=== PATIENT | female | born 1945 | race Caucasian/White ===

== ENCOUNTER 2024-02-28 05:14 | Observation (INO) ==
--- NOTE | 2024-02-14 12:49 | PAT Medication Instructions ---
Medication Instructions Date of Service February 14, 2024 Home Medications amlodipine 5 mg tablet 5 mg PO HS calcium 600 mg capsule 1,200 mg PO DAILY ibandronate 150 mg tablet 150 mg PO MONTHLY losartan 25 mg tablet 12.5 mg PO QAM meloxicam 15 mg tablet 15 mg PO DAILY multivitamin 1 tab PO DAILY omega 9-pux-cbd-fish oil 1,000 mg (120 mg-180 mg) capsule (Fish Oil) 1 cap PO DAILY simvastatin 10 mg tablet 10 mg PO HS ASK your surgeon for instructions meloxicam 15 mg tablet 15 mg PO DAILY STOP taking 2 weeks before surgery (or as soon as possible if surgery is within 2 weeks) omega 7-hzc-udl-fish oil 1,000 mg (120 mg-180 mg) capsule (Fish Oil) 1 cap PO DAILY DO NOT take the morning of surgery calcium 600 mg capsule 1,200 mg PO DAILY ibandronate 150 mg tablet 150 mg PO MONTHLY losartan 25 mg tablet 12.5 mg PO QAM multivitamin 1 tab PO DAILY Take evening before surgery amlodipine 5 mg tablet 5 mg PO HS simvastatin 10 mg tablet 10 mg PO HS Other Notes NOTHING TO EAT OR DRINK AFTER MIDNIGHT. If you have any questions please call us at [phone] or [phone] or [phone] or [phone]
--- NOTE | 2024-02-14 13:29 | Anesthesiology Consultation ---
Date of Service February 14, 2024 Assessment & Plan (1) Encounter for pre-operative examination: - awaiting surgeon ordered medical clearance-Dr. Caba, optimization form to be faxed to PCP. - Case discussed in detail with Dr. Sweeney regarding right bruit vs radiation of systolic murmur noted on exam. He advised sending an optimization note to PCP with upcoming surgeon ordered clearance. Patient made aware. - Outpatient joint assessment: Patient is currently scheduled for inpatient pathway. If re-evaluated and patient/surgeon requests outpatient pathway, patient is not recommended candidate for outpatient joint program from anesthesia standpoint. Chart Review Chart Review: Pending: Refer to Additional Notes / Consult section and Patient seen in Pre Admission Testing Teaching & Discussion Pre-Anesthesia Teaching/Discussion Notes: Instructed NPO after midnight before surgery, except medications with 15 cc of water. Medication instructions provided according to the PAT guidelines. History Surgery Operation Date: 02/28/24 07:00 Proposed Procedures p Right Total Hip Arthroplasty - Haim Meredith MD Height/Weight Height: 5 ft Weight: 60.3 kg Allergies Allergy/AdvReac Type Severity Reaction Status Date / Time No Known Allergies Allergy Verified 02/14/24 07:54 Medications Home Medications Medication Instructions Recorded Confirmed Last Taken amlodipine 5 mg tablet 5 mg PO HS 02/14/24 02/14/24 Unknown calcium 600 mg capsule 1,200 mg PO DAILY 02/14/24 02/14/24 Unknown ibandronate 150 mg tablet 150 mg PO MONTHLY 02/14/24 02/14/24 Unknown losartan 25 mg tablet 12.5 mg PO QAM 02/14/24 02/14/24 Unknown meloxicam 15 mg tablet 15 mg PO DAILY 02/14/24 02/14/24 Unknown multivitamin 1 tab PO DAILY 02/14/24 02/14/24 Unknown omega 8-akf-acj-fish oil 1,000 mg 1 cap PO DAILY 02/14/24 02/14/24 Unknown (120 mg-180 mg) capsule (Fish Oil) simvastatin 10 mg tablet 10 mg PO HS 02/14/24 02/14/24 Unknown Past Medical History Medical History (Updated 02/14/24 @ 13:33 by Kirti Merida PA-C) Aortic stenosis mild 12/04/2022 echo Hyperlipidemia Hypertension controlled, stable per pt Osteoarthritis Patient denies h/o stroke, seizures, heart attack, heart failure, DM, blood clots/DVTs or blood transfusions. Exercise / Class Metabolic Activity II 4-5 Yardwork/Stairs/Walk up hill (denies chest discomfort or shortness of breath with one flight of stairs) Past Family History Family History (Updated 02/14/24 @ 08:06 by Ksenia Kapoor RN) Other No family history of adverse response to anesthesia Past Surgical History Surgical History (Updated 02/14/24 @ 13:34 by Kirti Merida PA-C) History of anesthesia reaction Foggy x 5 days after last BELLA 2020 History of carpal tunnel release left History of cataract surgery right/left History of colonoscopy History of esophagogastroduodenoscopy (EGD) History of hysterectomy History of total hip arthroplasty left Past Anesthesia History No Family Hx of Anesthesia Complications and Other (see above) History of PONV No Hx of PONV and No Hx of Motion Sickness Social History Smoking Status: Former smoker Do You Dip or Chew Tobacco: No Smoking End Date: Hx Alcohol Use: Yes Alcohol type: wine alcohol intake frequency: a few times a month substance use type: does not use Review of Systems Snoring, denies witnessed apneas. Patient denies chest pain, shortness of breath, dyspnea on exertion, reflux, fever, chills, cough, wheezing, or palpitations. Physical Exam Vital Signs Vitals BP 121/69 P 76 TEMP 98.0 SP02 97% on RA RESP 18 Physical Patient resting comfortably in chair in no acute distress, alert and oriented, responding appropriately throughout visit Full cervical extension range of motion without pain TMD 3.5 finger breadths Mallampati Score 2 Dentition: several implants and a cap; denies chipped or loose teeth, crowns or bridges Lungs: normal respiratory effort. Good air movement, clear throughout to auscultation, no adventitious breath sounds Cardiac: regular rate and rhythm, 2/6 systolic murmur, no gallops or rubs Carotid arteries: bruit right carotid, no bruit left carotid Lab Results Anesthesia Preop Results Results Anesthesia Widget: WBC 7.61 K/ul (4.8-10.8) 02/14/24 Hgb 11.8 g/dl (12.0-16.0) L 02/14/24 Hct 35.2 % (37.0-47.0) L 02/14/24 Plt 296 K/uL (130-400) 02/14/24 Na 133 mmol/L (136-145) L 02/14/24 K 4.3 mmol/L (3.5-5.1) 02/14/24 Cl 97 mmol/L (98-107) L 02/14/24 CO2 31 mmol/L (21-32) 02/14/24 BUN 20 mg/dl (6-23) 02/14/24 Creat 0.86 mg/dl (0.6-1.2) 02/14/24 Glucose Level 95 mg/dl (70-99(Fasting)) 02/14/24 PT 10.4 Seconds (9.0-12.0) 02/14/24 PTT 24 Seconds (21-31) 02/14/24 INR 1.0 (0.9-1.1) 02/14/24 Urine Color Yellow 02/14/24 Urine Appearance Clear (Clear) 02/14/24 Urine pH 7.0 (4.5-7.5) 02/14/24 Urine Specific [place] 1.013 (1.000-1.030) 02/14/24 Urine Protein Negative (Negative) 02/14/24 Urine Glucose (UA) Negative (Negative) 02/14/24 Urine Ketones Negative (Negative) 02/14/24 Urine Blood Negative (Negative) 02/14/24 Urine Nitrite Negative (Negative) 02/14/24 Urine Bilirubin Negative (Negative) 02/14/24 Urine Urobilinogen Negative (Negative) 02/14/24 Urine Leukocyte Esterase Trace (Negative) H 02/14/24 Urine WBC (Auto) 0-5 /hpf (0-5) 02/14/24 Urine RBC (Auto) 0-2 /hpf (0-2) 02/14/24 Urine Hyaline Casts (Auto) 0-2 /lpf (0-2) 02/14/24 Urine Epithelial Cells (Auto) 0-2 /hpf (0-2) 02/14/24 Urine Bacteria (Auto) None Seen (None Seen) 02/14/24 Blood Type B Positive 02/14/24 Antibody Screen NEGATIVE 02/14/24 Testing Electrocardiogram Date: 02/14/24 NSR, rate 72 bpm Echocardiogram Date: 12/04/22 EF 55-60% Normal LV wall motion Mild mitral regurgitation Mild aortic valve stenosis (GRANT 1.2 cm2, peak gradient 30 mmHg) Mild tricuspid regurgitation
[2024-02-28] MEDS: traMADol HCL 50 MG TABLET PO SCH (05:40)
[2024-02-28] MEDS: ACETAMINOPHEN 500 MG TAB PO SCH ×2 (05:40→13:23)
[2024-02-28] MEDS: CeleBREX 200 MG CAP PO SCH (05:40)
[2024-02-28] MEDS: Scopolamine 1 MG TDSY TD SCH (05:41)
[2024-02-28] MEDS: FAMOTIDINE 20 MG TAB PO SCH (05:41)
[2024-02-28] MEDS: LR 500ML BOLUS, THEN 15ML/HR IV SCH (05:47)
[2024-02-28] MEDS: LR 60ML/HR IV SCH (05:52)
[2024-02-28] MEDS: dexAMETHasone**PF** 10 MG/ML VIAL IV SCH (05:52)
[2024-02-28] MEDS ORDERED: BUPIVACAINE 0.5 % 5 MG/1 ML PF 10ML VIAL ONE (06:22)
[2024-02-28] MEDS ORDERED: ONDANSETRON INJ 2 MG/ML 2 ML VIAL IV PRN ×2 (06:37→09:29)
[2024-02-28] MEDS ORDERED: fentaNYL citrate PF 100 MCG/2 ML VIAL IV PRN (06:37)
[2024-02-28] MEDS ORDERED: ATROPINE SULFATE 0.1 MG/ML 10ML SYR IV PRN (06:37)
[2024-02-28] MEDS ORDERED: ePHEDrine sulfate 50 MG/ML AMP IV PRN (06:37)
--- NOTE | 2024-02-28 06:40 | History & Physical Bridge Note ---
Date of Service February 28, 2024 History & Physical Bridge Note I have examined the patient, reviewed the History & Physical and in the interval since the performance of the History & Physical I have noted the following changes of clinical significance: no changes noted
[2024-02-28] MEDS ORDERED: fentaNYL citrate PF 100 MCG/2 ML VIAL ONE (06:45)
[2024-02-28] MEDS ORDERED: MIDAZOLAM HCL 1 MG/ML 2ML VIAL ONE (06:45)
[2024-02-28] MEDS ORDERED: DexMEDEtomidine HCL IV 100 MCG/ML VIAL IV ONE (06:46)
[2024-02-28] MEDS: TRANEXAMIC ACID 1,000 MG **IV Pre-op IV SCH (06:48)
[2024-02-28] MEDS: ceFAZolin 2000MG 2,000 MG/15 ML SYR IV SCH ×2 (06:57→14:50)
[2024-02-28] MEDS ORDERED: PHENYLEPHRINE 100MCG/ML 10ML SYR IV ONE ×2 (07:19→07:47)
[2024-02-28] MEDS ORDERED: ONDANSETRON INJ 2 MG/ML 2 ML VIAL ONE (07:19)
[2024-02-28] MEDS ORDERED: PROPOFOL IV EMULSION 10 MG/ML 20 ML VIAL IV ONE (07:19)
[2024-02-28] MEDS: ROPIV 0.5% 246mg, Ketorolac 30mg, EPINEPHrine 0.5mg in NSS INFIL SCH (07:29)
[2024-02-28] MEDS: ORTHO JOINT ANESTHETIC ONE (07:29)
[2024-02-28] MEDS ORDERED: LIDOCAINE 2% 2 ML VIAL/AMP(20MG/ML) INFIL ONE (07:47)
[2024-02-28] MEDS ORDERED: PHENYLEPHRINE HCL 10 MG/ML VIAL ONE ×2 (08:30)
[2024-02-28] MEDS: TRANEXAMIC ACID 1,000 MG **IV Intra-op IV SCH (08:47)
--- NOTE | 2024-02-28 09:15 | Operative Report ---
Post Operative Report Pre & Post Diagnosis Operation Date: 02/28/24 07:00 Pre-Op Diagnosis: Right Hip Degenerative Joint Disease Post-Op Diagnosis: Right Hip Degenerative Joint Disease I identified the patient and participated in the time-out.: Yes Procedure Operation Date: 02/28/24 07:00 Actual Procedures p Right Total Hip Arthroplasty, Cemented(Right) - Haim Meredith MD Surgeon Haim Meredith MD Optical Mechanic Apprentice Carrington Thompson DO and MACKENZIE Mendoza PA-C. Estimated Blood Loss 100 Findings Consistent with Post-Op Diagnosis Specimens Right femoral head Anesthesia Type Spinal MAC Complications none Disposition Disposition: Recovery Room Indications 78-year-old female with right hip pain that is severely worsened in the last 1 year. 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 She has previously undergone a left total hip arthroplasty by another surgeon with a good result. She desires to have a hip replacement done on the right side. I do long discussion with her about the risks and benefits of surgery, alternatives to surgery, and expected outcomes. After reviewing all these she elected to proceed with surgery. All questions were answered. Informed consent was signed. Description of Procedure Patient was identified in the preoperative holding area where the surgical site, right hip, was marked. A spinal anesthetic was placed, then the patient was brought back to the main operating room, placed in the operating table and moved into the lateral decubitus position. Axillary roll was placed. All bony prom inences were padded. Perioperative antibiotics and tranexamic acid 1 gram IV were administered. The operative extremity was prepped and draped in the normal sterile fashion. Prior to incision a multidisciplinary timeout was called. All in the room were in agreement. We began by making an incision for a posterior approach to the hip. We dissected down through subcutaneous tissues to the level of the fascia. The fascia was incised in line with the incision. Charnley bow was placed. Fatty tissue was reflected posteriorly off the back of the greater trochanter to expose the piriformis and short external rotators of the hip. Quadratus femoris was taken off the femur subperiosteally. The piriformis and short external rotators were dissected off the posterior aspect of the hip. A box cut was made in the capsule. Inferior hip capsule was released off the femur. The femoral head was dislocated. The femoral neck cut was made at our preoperative template. The acetabulum was then exposed. The labrum was sharply excised. Contents of the cotyloid fossa were removed with electrocautery. We then began reaming at a size 8 mm less than our preoperative template. We reamed up by 1 [address] the way up to a size 52 mm cup. This gave us good bleeding cancellus bone circumferentially. The acetabulum was then irrigated out and dried. The real [place] Gription cup was then impacted down into position with 45 degrees of lateral opening and 25 degrees of anteversion. Two cancellous bone screws were placed up into the ilium. Excellent fixation was obtained. A trial liner for a 36 mm femoral head was then placed. Next we turned our attention to the femur. The lateral neck was removed with a box osteotome. Intramedullary guide was used to establish the intramedullary canal. We then broached all the way up to a size 4 Actis stem. Patient's cancellous bone was fairly soft and we were not getting good rotational stability with this down. Therefore I elected to switch to a cemented Reeves stem. I broached up to a size 4 cemented Reeves stem. We began trialing with a standard offset neck and a -2 head. Hip was reduced. Leg lengths were symmetric. The hip was stable in extension and external rotation, and stable in the sleeper position. At 90 degrees of hip flexion the hip could be internally rotated 70 degrees before levering out of the cup. I was very happy with the stability exam. Therefore the hip was dislocated and the femoral trial was removed. The acetabulum was re-exposed, and the trial liner was removed. Dickinson hole eliminator screw was placed. An Altrx polyethylene liner for a 36 mm femoral head was then impacted into the shell. The locking mechanism was checked to ensure that it had engaged which it had. The femur was re-exposed. The femoral canal was irrigated and dried. Cement restrictor was placed distally. We had a little difficulty getting this down to our desired depth as the cortical bone narrowed significantly distally. Cement was mixed on the back table. Once the cement was ready we injected this into the femoral canal, then pressurized the cement using my thumbs. The cemented femoral stem was then inserted into the femur and tapped down into position. Calcar sat about 1 mm above the femoral neck cut. Likely the tip of the stem was contacting the cement restrictor distally. Femoral implant was held in position until the cement completely cured at approximately 20 degrees of anteversion. Next, the -2 metal femoral head was opened up and gently impacted down onto the trunnion. The hip was atraumatically reduced. Another 1 gram of IV tranexamic acid was started prior to closure. The wound was irrigated out with sterile Betadine solution. The periarticular injection cocktail was then placed. The short external rotators, piriformis, and posterior capsule were repaired through drill holes in the greater trochanter using #2 Vicryl. The fascia was run with a looped #1 PDS. The subcutaneous layer was closed with #1 PDS. The dermal layer was closed with 2-0 Vicryl. Zip line was used for the skin followed by a Silverlon dressing. A compressive dressing was then placed. The patient was then rolled supine. Leg lengths were rechecked and were symmetric. An abduction pillow was placed. Sedation was lifted and the patient was transferred to the recovery room in stable condition. Summary of implants: Depuy [place] Gription Acetabular Shell Sector Cup, 52 mm outer diameter Two [place] Cancellous bone screws, 6.5 x 30 and 6.5 x 25 mm Dickinson hole eliminator [place] Altrx Polyethylene Acetabular Liner, Neutral, with a 36 mm inner diameter DePuy cemented collared femoral stem, 12/14 taper, size 4 standard offset 36 mm metal femoral head with -2 offset Postoperative course: Patient will be admitted overnight from the recovery room. Patient will be weightbearing as tolerated with posterior hip precautions. Aspirin for DVT prophylaxis I attest to the content of the Intraoperative Record and any orders documented therein. Any exceptions are noted below.
[2024-02-28] MEDS ORDERED: NALOXONE HCL 0.4 MG/1 ML VIAL/CARP IV PRN (09:29)
[2024-02-28] MEDS ORDERED: MAGNESIUM HYDROXIDE SUSP 30 ML UDC PO PRN (09:29)
[2024-02-28] MEDS ORDERED: HYDROmorphone INJ 0.5 MG/0.5 ML SYR IV PRN (09:29)
[2024-02-28] MEDS ORDERED: diphenhydrAMINE 50 MG/ML VIAL IV PRN (09:29)
[2024-02-28] MEDS ORDERED: bisacodyL 10 MG SUPP PR PRN (09:29)
[2024-02-28] MEDS ORDERED: ALUMINUM/MAGNESIUM SUSP 30 ML UDC PO PRN (09:29)
[2024-02-28] MEDS ORDERED: METOCLOPRAMIDE HCL INJ 5 MG/ML 2 ML VIAL IV PRN (09:29)
--- NOTE | 2024-02-28 09:29 | Operative Report ---
Post Operative Report Pre & Post Diagnosis Operation Date: 02/28/24 07:00 Pre-Op Diagnosis: Right Hip Degenerative Joint Disease Post-Op Diagnosis: Right Hip Degenerative Joint Disease I identified the patient and participated in the time-out.: Yes Procedure Operation Date: 02/28/24 07:00 Actual Procedures p Right Total Hip Arthroplasty, Cemented(Right) - Hami Meredith MD Surgeon Haim Meredith MD Chemical Equipment Sales Engineer Carrington Thompson DO and MACKENZIE Mendoza PA-C. Estimated Blood Loss 100 Findings Consistent with Post-Op Diagnosis Specimens femoral head Description of Procedure I was present during the entire case assisting with positioning, prepping, draping, wound retraction, wound closure, dressing and abduction pillow placement. Fellow also present. I served as an extra set of hands during the case. Please see Dr. Meredith procedure note for specifics of the case. I attest to the content of the Intraoperative Record and any orders documented therein. Any exceptions are noted below.
--- NOTE | 2024-02-28 09:31 | Operative Report ---
Post Operative Report Pre & Post Diagnosis Operation Date: 02/28/24 07:00 Pre-Op Diagnosis: Right Hip Degenerative Joint Disease Post-Op Diagnosis: Right Hip Degenerative Joint Disease I identified the patient and participated in the time-out.: Yes Procedure Operation Date: 02/28/24 07:00 Actual Procedures p Right Total Hip Arthroplasty, Cemented(Right) - Haim Meredith MD Surgeon Haim Meredith MD Freight Air Brake Fitter Carrington Thompson DO and MACKENZIE Mendoza PA-C. Estimated Blood Loss 100 Findings Consistent with Post-Op Diagnosis Specimens femoral head Description of Procedure The patient was taken to the operating room where they underwent sedation per anesthesia provider. The patient was positioned in left lateral decubitus and the right lower extremity was prepped and draped in the usual sterile fashion. The patient underwent a right total hip arthroplasty. Please see Dr. Meredith's operative report for specifics of the procedure. I was present for the entire case from initial patient positioning through final closure. Assistance was provided in tissue retraction, hemostasis, hardware placement, final wound closure, and postoperative dressing placement. The patient was taken to the recovery room in satisfactory condition. I attest to the content of the Intraoperative Record and any orders documented therein. Any exceptions are noted below.
[2024-02-28] MEDS ORDERED: NON-FORMULARY MEDICATION (Ibandronate 150 mg Tablet) PO SCH (09:45)
--- NOTE | 2024-02-28 11:19 | XRay Report ---
SINGLE VIEW PELVIS CLINICAL HISTORY: Postoperative examination. FINDINGS: An AP portable view of the pelvis is compared to study dated 02/19/2024. A bipolar right hip arthroplasty is in near-anatomic alignment. At least 2 cortical lag screws transfix the acetabular c up. No acute fracture is identified. There are expected postoperative changes overlying the right hip including subcutaneous gas and soft tissue edema. A left hip arthroplasty is unchanged from previous . Sclerotic change is noted in the sacroiliac joints. Lumbosacral spondylosis is partially imaged. La rge enthesophytes arise from the anterior superior iliac spines. A bone island in the sacrum is uncha nged. IMPRESSION: Expected postoperative findings status post right hip arthroplasty. No acute fracture is seen. ACT 112: Negative or not required by law. Electronically signed by: Bo Orta M.D. 02/28/2024 11:18 AM
--- OUTSIDE RECORDS SUMMARY | 2024-02-28 13:17 | External Medical Summary | Continuity of Care Document ---
Author Name Unknown Organization [id number] Address [address] [place] [phone] Care Team Providers Care Rn Women Services Name Role Phone Payam Caba Primary Care Physician [phone] [id number] Date[facility]s): 02/19/24 - 02/19/24 [id number] [address] [place] [id number] Encounter Diagnosis Degenerative joint disease (DJD) of hip(Discharge Diagnosis) - 02/19/24 AVN (avascular necrosis of bone)(Discharge Diagnosis) - 02/19/24 Discharge Disposition: Home or Self Care Attending Physician: YOEL Acharya Jennifer R Referring Physician: YOEL Mendoza Dennis Allergies, Adverse Reactions, Alerts No Known Medication Allergies Medications amLODIPine 5 mg oral tablet Start: 02/12/24 12:57:00 PM EDT, 90 tab, 0 Refill(s) Start Date: 02/12/24 Status: Ordered calcium carbonate Start: 02/12/24 12:57:00 PM EDT, 1,200 = mg, PO, Daily Start Date: 02/12/24 Status: Ordered hydrochlorothiazide-losartan 12.5 mg-100 mg oral tablet Start: 02/12/24 12:57:00 PM EDT, 90 tab, 0 Refill(s) Start Date: 02/12/24 Status: Ordered ibandronate 150 mg oral tablet Start: 02/12/24 12:57:00 PM EDT, 3 tab, 0 Refill(s) Start Date: 02/12/24 Status: Ordered meloxicam 15 mg oral tablet Start: 02/12/24 12:57:00 PM EDT, 1 tab, PO, Daily Start Date: 02/12/24 Status: Ordered multivitamin Start: 02/12/24 12:57:00 PM EDT, 1 tab, PO, Daily Start Date: 02/12/24 Status: Ordered simvastatin 10 mg oral tablet Start: 02/12/24 12:57:00 PM EDT, 90 tab, 0 Refill(s) Start Date: 02/12/24 Status: Ordered Problem List Condition Confirmation Course Effective Dates Status Health St atus Informant Right hip pain Confirmed Active Degenerative joint disease (DJD) of hip Confirmed Active AVN (avascular necrosis of bone) Confirmed Active Diagnosis Diagnosis Type Effective Dates Health Status Clinical Service Informant Degenerative joint disease (DJD) of hip Discharge Diagnosis 02/19/24 AVN (avascular necrosis of bone) Discharge Diagnosis 02/19/24 Social History Social History Type Response Smoking Status Never smoked cigaret kay Sex Female Sex Representation Female (finding) Pre-OP H & P * YOEL Acharya Jennifer R: PERFORM, MODIFY, MODIFY, MODIFY, MODIFY Event Display: Pre-OP H & P Authored Date: [id number] Name:HARI SANTILLAN Patient Number:[id number] :1945 Date of Service:02/19/2024 Chief Complaint Right hip pain; preoperative visit forright total hip arthroplasty History of Present Illness This 78-year-old female presents to clinic today for evaluation of right hip pain that has been ongoing since May.Patient states that the onset of the pain was insidious with no known injury. She states that it feels very similar to the pain that she had in her left hip before she had it replaced 3 years ago. Patient states that the surgeon replaced her left hip has retired. She states that she is also been evaluated by Dr. So at [facility] in [place] but he does not do hip surgery. Patient states that recently she had begun using a cane as an assistive device. Patient localizes most of her pain in the groin area and states that occasionallyit radiates to the lateral hip and down her leg to her ankle. She states she is unable to sit fora long period of time due to a constant aching sensation. She states she can stand for longer period that she can sit. Patient states that a few weeks ago she did fall in her garden but did not injure the hip. Her issue at that time was she had difficulty getting up because of her right hip shelley thering her so much. She states that before the pain developed she was very active going to the gym 3-4 times a week and walking her dog for 3 miles each day. Patient states that she uses meloxicam on a daily basis and recently completed a Medrol Dosepak without relief of her symptoms. Patient states to sleep at night she has to lie on her left side with a pillow between her knees and ice on her right hip. She feels that her range of motion is very limited and she has difficulty performing activities of daily life like putting on her pants when getting out of or into her car. Due toher failure of conservative treatmentand x-ray findings surgical intervention was recommended. She is scheduled for right total hip arthroplasty with Dr. Meredith on February 28, 2024. Review of Systems Denies any recent cough, cold, fevers, chills or flulike symptoms. She denies any lightheadedness, dizziness, syncopal episodes, headaches, migraines or seizures. Denies any bleeding or clotting disorders or history of DVT or pulmonary embolism. Denies any recent hospitalizations. Denies any history of metal sensitivity, latex allergy or MRSA. Denies any shortness of breath or chest pain. Denies abdominal pain, heartburn, indigestion, nausea, vomiting, diarrhea or constipation. Denies any urinary tract infections. Denies any hearing or vision changes. Denies any dental problems. Physical Exam Vitals:Last Updated 02/19/24 09:23 Date Temp BP Location Pulse RR SpO2 Pain 02/19/24 36.3 134/70 20 97 02/19/24 3 02/12/24 2 Height and Weight:Last Updated 02/12/24 12:55 Date BMI Wt(kg) Wt(lb) Method Ht(cm) (ft-in) Method 02/12/24 25.97 60 132 Standing Scale 152 5-0 General:Well-dressed, well-nourished. Normal mood and affect. Alert and oriented x3. HEENT:Head: Atraumatic, normocephalic. Eyes: Extraocular movements intact, pupils equal round and reactive to light, sclera normal. Ears: Ears grossly normal, TMs are clear normal light reflex.Nose: Nares are patent bilaterally. Throat: Oropharynx clear mucous membranes moist good dentition uvula midline. Neck:Supple, no lymphadenopathy, nontender palpation, full range of motion. Cardiac:Regular rate and rhythm, normal S1, S2. No murmurs, rubs or gallops appreciated. Lungs:Clear to auscultation bilaterally. No adventitious sounds. No accessory muscle use. Abdomen:Soft, nontender, nondistended, normal bowel sounds heard in all 4 quadrants. Extremities: Focusing on the patient'sRIGHT lower extremity: Sensation intact to light touch L3 to S1 dermatomes Palpable DP and PT pulses Right leg approx. 8 mm shorter ROM: Flexion limited to 60/ Abduction limited to 15/ External rotation limited to25/ Internal rotation 5 No skin lesions + Log roll + Stinchfield test -Tenderness over trochanteric bursa Diagnostic Results AP Pelviswith sizingball, sittingandstanding lateralviewsviews of thepelvisobtainedtoday [facility] by [facility] show avascular necrosis. Note is made of prior L BELLA. Significant lumbar DJD and aortic calcification. I independently interpreted an XRAY of the Right hip fromMay 2023 which shows mild arthritis.No femoral head collapse. Reasonable cortical bone for her age. I independently interpreted an MRI of the right hip from 02/13/24 which shows avascular necrosis with collapse of femoral head. Assessment/Plan 1.Degenerative joint disease (DJD) of hip 2.AVN (avascular necrosis of bone) Patient is scheduled for right total hip arthroplasty with Dr. Meredith on February 28, 2024. Risk and complications of the procedure were explained to the patientand include but are not limitedto infection, pain, bleeding, scarring, nerve or blood vessel damage, wound problems, weakness, stiffness, incomplete relief of symptoms,hardware failure, hardware loosening, wear, fracture, tendonor ligament injury, dislocation, leg length inequality, blood clots, embolisms, heart attack, stroke and . All questions were answered and informed consent was obtained by Dr. Meredith today. She did have preadmission testingearlier this month in which sheobtained a preoperative CBC,BMP, PT, PTT, type and screen, urinalysis and culture if indicated, EKG, chest x-ray, MRSA swab. She will also obtain preoperative medical clearance by her family physician . This is scheduled for later this afternoon. She was instructed on usage of the CHG wipes preoperatively. She did obtain theseat her preadmission testing appointment. She wasinformed of dental prophylaxis. She will stay overnight in the hospital and plan for discharge the following day. She wouldlike in-home physical therapyas well as home nursing. She does not feel that she will need outpatient physical therapy. If so she would like to go closer to home in [place]. She will follow-up with [facility] her 2-week postoperative appointment for suture removal. Postoperative course was discussed. She will be on aspirin 81 mg p.o. twice daily for DVT prophylaxisfor4 to 6 weeks after surgery.She will get all of her prescriptionsat discharge from the hospital. She knows to call with any further problems, questions or concerns. All questions were answered today. She understands and agrees with the plan. This chart was completed utilizing [employer] voice recognition software. Grammatical errors, random word insertions, pronoun errors, and in complete sentences are an occasional consequence of the system. Any questions or concerns about the content, text, or information contained within the body of this dictation should be addressed directly to the provider for clarification. Problem List/Past Medical History Ongoing Degenerative joint disease (DJD) of hip Hypertension High cholesterol Procedure/Surgical History Left total hip arthroplasty Hysterectomy 1986 Cataracts bilateral Medications Home amLODIPine(amLODIPine 5 mg oral tablet) calcium carbonate, 1200 mg, PO, Daily hydrochlorothiazide-losartan(hydrochlorothiazide-losartan 12.5 mg-100 mg oral tablet) ibandronate(ibandronate 150 mg oral tablet) meloxicam(meloxicam 15 mg oral tablet), 15 mg= 1 tab, PO, Daily multivitamin, 1 tab, PO, Daily simvastatin(simvastatin 10 mg oral tablet) Allergies No Known Medication Allergies Social History Denies any tobacco use. Does drink approximately 1 alcoholic drink per week. Denies any recreational drug use. States that she has a cane for use after surgery. She does not have a walker andshe does not believe that she will need 1 but she will borrow her friends just in case. She does not wish to use a raised toilet seatafter surgery. She states it was"unsafe"after her last total hip arthroplasty. She also does not feel that she needs a shower chairas she hasbars in her shower to hold onto. Family History Noncontributory. Electronic Signature on File Electronically Reviewed/Signed by: Abigail Acharya PA-C Author Signature Dt/Tm:02/19/2024 12:28PM Division of Sports Medicine Electronically Reviewed/Signed by: Haim Meredith MD Cosigner Signature Dt/Tm: 02/19/2024 12:31PM Division of Sports Medicine [facility] Patient Care team information Care Team Personnel Name: MD Caba Robert C Position: Referring Member Role: Primary Care Provider Address: [facility] [address] [id number]
--- OUTSIDE RECORDS SUMMARY | 2024-02-28 13:17 | External Medical Summary | Continuity of Care Document ---
Author Name Unknown Organization [address] Address [address] [place] [phone] Care Team Providers Care Training Mgr Name Role Phone Payam Caba Primary Care Physician [phone] [id number] Date(s): 02/19/24 - 02/19/24 [place] [id number] [address] [place] [id number] Encounter Diagnosis Avascular necrosis of bone of right hip(Discharge Diagnosis) - 02/19/24 Discharge Disposition: Home or Self Care Attending Physician: MD Meredith Paul K Referring Physician: YOEL Mendoza, Alon Allergies, Adverse Reactions, Alerts No Known Medication Allergies Assessment and Plan Extracted from: Title:Haim Meredith Author:Maren Sheikh te:02/19/24 Impression: 78 year old fema le with right hip avascular necrosis, femoral head collapse Plan: - I discussed the patient's treatment options of conservative management versus surgical intervention and they will elect to proceed with surgery. Surgical plan to include right BELLA. Possible cemented femoral component and dual mobility acetabular component. Reviewed risks and benefits of surgery, alternatives, and expected outcomes. Discussed the importance of having help at home while recovering, and to avoid driving for 4 months.All questions were answered. Stop taking Meloxicam 7 days prior to surgery. Due to low levels of hemoglobin per recent labs, we discussed she is higher risk for blood transfusion.She also understands sheis at increased risk for post-op dislocation and fracturedue to her age and gender. Informed consent was signed. - Follow up for post-operative appointment Medications amLODIPine 5 mg oral tablet Start: [...] 0 Refill(s) Start Date: 02/12/24 Status: Ordered Mental Status 02/19/24 Barriers to Learning one year None evide nt Mandatory Health Literacy Documentation Yes Health Literacy Communication Barriers N ever Primary Language Hebrew Problem List Condition Confirmation Course Effective Dates Status Health St at[facility] Informant Right hip pain Confirmed Active Degenerative joint disease (DJD) of hip Confirmed Active AVN (avascular necrosis of bone) Confirmed Active Diagnosis Diagnosis Type Effective Dates Health Status Cl inical Service Informant Avascular necrosis of bone of right hip Discharge Diagnosis 02/19/24 Vital Signs Most recent to oldest [Reference Range]: 1 Temperature [36.5-37.9 DegC] 36.3 DegC *LOW* (02/19/24 9:23 AM) Respiratory Rate 20 br/min (02/19/24 9:23 AM) Blood Pressure 134/70mmHg (02/19/24 9:23 AM) Social History Social History Type Response Smoking Status Never smoked cigaret kay Sex Female Sex Representation Female (finding) Ortho Outpt Note * MD Meredith Paul K: MODIFY MD Meredith Paul K: MODIFY, MODIFY Event Display: Ortho Outpt Note Authored Date: [id number] Primary Care Provider MD Rosales, Payam Krishnan Referring Provider YOEL Mendoza, Alon Chief Complaint discuss r bella / consent History of Present Illness Josephine Tomlin presents today forright BELLA discussion, DOS scheduled for02/28/24. She has been having this pain since May 2023, but denies any trauma to thearea. Her pain has worsened since then, but has exponentially gotten worse over the last month. Shehas groin pain when she stands, and notes an ache down into her ankle whenever she sits. She ambulates with a cane for the last few months. She lives alone, and notes stairs in the house, about 13 steps. She did notes, though, that she is able to be with her grandson after surgery.She had her left hip replaced 02/21/21. She denies any numbness or tingling. She was diagnosed with low bone density. Review of Systems A 14 point review of systems isavailable in the EMR. Physical Exam Focusing on the patient'sRIGHT lower extremity: Sensation [...] Pelviswith sizingball, sittingandstanding lateralviewsviews of thepelvisobt[facility]today [facility] show avascular necrosis. [...] necrosis with collapse of femoral head. Assessment/Plan Impression: 78 year old female with right hip avascular necrosis, femoral head collapse Plan: - I discussed the patient's treatment options of conservative management versus surgical intervention and they will elect to proceed with surgery. Surgical plan to include right BELLA. Possible cemented femoral component and dual mobility acetabular component. Reviewed risks and benefits of surgery, alternatives, and expected outcomes. Discussed the importance of having help at home while recovering, and to avoid driving for 4 months.All questions were answered. Stop taking Meloxicam 7 days prior to surgery. Due to low levels of hemoglobin per recent labs, we discussed she is higher risk for blood transfusion.She also understands sheis at increased risk for post-op dislocation and frac turedue to her age and gender. Informed consent was signed. - Follow up for post-operative appointment Attestation I,Maren Sheikh,scribing for and in the presence of, Haim Meredith, on this date,02/19/2024 09:40:15. Problem List/Past Medical History Ongoing Right hip pain Medications amLODIPine(amLODIPine 5 mg oral tablet) calcium carbonate, 1200 mg, PO, Daily hydrochlorothiazide-losartan(hydrochlorothiazide-losartan 12.5 mg-100 mg oral tablet) ibandronate(ibandronate 150 mg oral tablet) meloxicam(meloxicam 15 mg oral tablet), 15 mg= 1 tab, PO, Daily multivitamin, 1 tab, PO, Daily simvastatin(simvastatin 10 mg oral tablet) Allergies No Known Medication Allergies Social History Smoking Status Never smoked cigarettes Recommendations Health Maintenance Pending(in the next year) OverDue Adult Influenza Vaccine due11/18/23and every 1year Due Adult COVID-19 Vaccination due02/19/24Unknown Frequency Adult Social Determinants of Health Screening due02/19/24Unknown Frequency Adult Tdap/Td Vaccine due02/19/24Unknown Frequency Lipid Screening due02/19/24Unknown Frequency Medicare Annual Wellness Visit due02/19/24and every 1year Osteoporosis Screening due02/19/24One-time only Pneumococcal Vaccine Older Adults due02/19/24One-time only Shingles Vaccine due02/19/24One-time only Due In Future Body Mass Index not due until02/12/25and every Satisfied(in the past 1 year) Satisfied Body Mass Index on02/12/24.Satisfied by JOCELYN Russo Kennie L Electronic Signature on File Electronically Reviewed/Signed by: Maren Sheikh Author Signature Dt/Tm:02/19/2024 11:58 AM Electronically Reviewed/Signed by: Haim Meredith MD Cosigner Signature Dt/Tm: 02/19/2024 12:46PM Division of Sports Medicine MR Patient Care team information Care Team Personnel Name: MD Rosales, Payam Krishnan Position: Referring Member Role: Primary Care Provider Address: [address]
[2024-02-28] MEDS: SODIUM CHLORIDE 0.9% 1,000 ML IV SCH (13:21)
[2024-02-28] MEDS: KETOROLAC TROMETHAMINE 15 MG/ML VIAL IV SCH (13:22)
--- NOTE | 2024-02-28 14:33 | Anesthesiology Progress Note ---
Date of Service February 28, 2024 Anesthesia Post Procedure Vital Signs Vital Signs: Temp Pulse Pulse Resp BP Pulse Ox O2 Del Method 02/28/24 13:46 36.7 C 80 16 145/62 H 98 Room Air 02/28/24 13:12 36.5 C 82 18 130/71 94 Room Air 02/28/24 12:35 36.6 C 74 16 123/69 95 Room Air 02/28/24 12:15 75 12 113/58 L 100 Room Air 02/28/24 11:45 67 12 96/44 L 92 Room Air 02/28/24 11:15 63 12 105/52 L 93 Room Air 02/28/24 11:00 74 12 108/66 92 Room Air 02/28/24 10:45 75 12 106/57 L 92 Room Air 02/28/24 10:30 68 13 116/52 L 92 Room Air 02/28/24 10:15 37.3 C 71 16 111/57 L 93 Room Air 02/28/24 10:05 65 17 96/44 L 98 Room Air 02/28/24 09:55 72 19 103/50 L 98 Room Air 02/28/24 09:45 65 14 103/41 L 94 Room Air 02/28/24 09:35 64 12 101/51 L 100 Oxymask 02/28/24 09:27 36.7 C 63 12 93/46 L 98 Oxymask 02/28/24 05:31 36.8 C 85 20 144/67 H 96 Room Air O2 Flow Rate 02/28/24 13:46 02/28/24 13:12 02/28/24 12:35 02/28/24 12:15 02/28/24 11:45 02/28/24 11:15 02/28/24 11:00 02/28/24 10:45 02/28/24 10:30 02/28/24 10:15 02/28/24 10:05 02/28/24 09:55 02/28/24 09:45 0 02/28/24 09:35 4 02/28/24 09:27 4 02/28/24 05:31 Pain Intensity Right Hip: Pain Intensity: 2 Transfer of Care Handoff Completed per policy Notes Mental Status: alert / awake / arousable and participated in evaluation Patient Amnestic to Procedure: Yes Nausea / Vomiting: adequately controlled Pain: adequately controlled Airway Patency, RR, SpO2: stable & adequate BP & HR: stable & adequate Hydration State: stable & adequate Neuraxial Anesthesia: was administered and sensory block is resolving Anesthetic Complications: no major complications apparent and Pt Satisfied with anesthetic care
[2024-02-28] MEDS: Scopolamine CHECK PATCH PLACEMENT SCH (14:51)
[2024-02-28] MEDS: oxyCODONE HCL IR 5 MG TAB (IMMEDIATE RELEASE) PO PRN (19:16)
[2024-02-28] MEDS: DOCUSATE SODIUM 100 MG CAP PO SCH (20:33)
[2024-02-28] MEDS: SENNA 8.6 MG TAB PO SCH (20:33)
[2024-02-28] MEDS: amLODIPine BESYLATE 5 MG TAB PO SCH (20:33)
[2024-02-28] MEDS: SIMVASTATIN 10 MG TAB PO SCH (20:33)
[2024-02-28] MEDS ORDERED: CeleBREX 200 MG CAP PO SCH (21:00)
[2024-02-29 03:47] VITALS: TEMP 98.2
[2024-02-29 06:28] LABS: Basophils # (auto) 0.02 K/uL (0.00-0.20); Basophils % (auto) 0.2 %; Eosinophils # (auto) 0.06 K/uL (0.00-0.50); Eosinophils % (auto) 0.6 %; Hematocrit (blood only) 28.3 % (37.0-47.0); Hemoglobin 9.7 g/dl (12.0-16.0); Immature Granulocytes # (auto) 0.06 K/uL (0.01-0.20); Immature Granulocytes % (auto) 0.6 %; Lymphocytes # (auto) 1.14 K/uL (1.20-3.40); Lymphocytes % (auto) 10.7 %; Mean Corpuscular Hemoglobin 30.3 pg (25.0-34.0); Mean Corpuscular Hgb Conc 34.3 g/dL (32.0-36.0); Mean Corpuscular Volume 88.4 fL (80.0-100.0); Mean Platelet Volume 9.7 fL (9.4-12.4); Monocytes # (auto) 1.13 K/uL (0.11-0.59); Monocytes % (auto) 10.6 %; Neutrophils # (auto) 8.23 K/uL (1.40-6.50); Neutrophils % (auto) 77.3 %; Platelet Count 277 K/uL (130-400); RDW Coefficient of Variation 12.5 % (11.5-14.5); RDW Standard Deviation 40.9 fL (36.4-46.3); White Blood Count 10.64 K/ul (4.8-10.8)
[2024-02-29 07:01] LABS: BUN Creatinine Ratio 23.1 (10-20); Calcium 8.3 mg/dl (8.6-10.3); Creatinine Clr Calc Pharmacy 45.8 ml/min; Potassium 4.3 mmol/L (3.5-5.1)
[2024-02-29] MEDS: MULTIVITAMIN TAB PO SCH (08:02)
[2024-02-29] MEDS: ASPIRIN 81 MG ECTAB PO SCH (08:02)
[2024-02-29] MEDS: dexAMETHasone 4 MG TAB PO SCH (08:03)
[2024-02-29] MEDS: LOSARTAN POTASSIUM 25 MG TAB PO SCH (08:04)
[2024-02-29] MEDS: OMEGA-3 (PURIFIED FISH OIL) 1 GM CAP PO SCH (08:04)
[2024-02-29] MEDS: CALCIUM CARBONATE 1250MG TAB PO SCH (08:04)
[2024-02-29] MEDS ORDERED: NON-FORMULARY MEDICATION (Multivitamin Tablet) PO SCH (09:00)
--- NOTE | 2024-02-29 09:03 | Orthopedic Progress Note ---
Date of Service February 29, 2024 Assessment & Plan (1) S/P total hip arthroplasty: Plan: Total hip precautions reviewed PT/OT Weightbearing as tolerated with walker assistance Ice with easy wrap Keep Silverlon dressing in place Pain controlled p.o. medication DVT prophylaxis with aspirin and TEGAN stockings Abduction pillow use x 6 weeks Plan is to discharge home today with in-home physical therapy for the first 2 weeks Follow-up with [facility] orthopedics as previously scheduled With questions contact our clinic at [phone] Admission and Anticipated Discharge Date Admission Date: February 28, 2024 Subjective This 78-year-old female is day 1 status post right total hip arthroplasty. Patient states she is doing very well. She states that she does not have significant pain. She has an achy sensation that is effectively controlled with extra strength Tylenol. She states that her only concern is that her right leg seems a little longer than her left. She states she has been able to walk around the room and down the leavitt without difficulty or assistance other than the use of her walker. Patient is hoping to be discharged home later today. She states that she is staying with her granddaughter and doing physical therapy in her home. Currently she denies chest pain, shortness of breath, fever, chills, sweats, nausea, vomiting, diarrhea or difficulty voiding. She also has no complaint of numbness or tingling in her right lower extremity. Review of Systems Review of Systems: All systems reviewed & are unremarkable except as noted in Subjective Physical Exam Physical Exam: Right hip: Outer dressing was removed. Silverlon is clean dry and intact and left in place. Patient is able to perform an active straight leg raise test. She is able to actively dorsi and plantarflex her foot. Her quad strength is 3+ out of 5. She tolerates light passive hip flexion near 90 degrees and only has a slight pulling sensation with a passive internal and external hip rotation. She is neurovascularly intact in the right lower extremity. Her peripheral pulses are 2+. Results & Data Vital Signs (Past 12 Hours) Vital Signs Temp Pulse Resp BP BP Pulse Ox O2 Del Method 02/29/24 07:44 Room Air 02/29/24 07:38 36.8 C 88 18 118/61 95 Room Air 02/29/24 03:20 36.8 C 81 18 123/63 94 Room Air 02/28/24 23:08 36.6 C 66 16 132/66 94 Room Air Diagnostic Findings Laboratory Results WBC 10.64 K/ul (4.8-10.8) 02/29/24 05:44 RBC 3.20 M/uL (4.20-5.40) L 02/29/24 05:44 Hgb 9.7 g/dl (12.0-16.0) L 02/29/24 05:44 Hct 28.3 % (37.0-47.0) L 02/29/24 05:44 MCV 88.4 fL (80.0-100.0) 02/29/24 05:44 MCH 30.3 pg (25.0-34.0) 02/29/24 05:44 MCHC 34.3 g/dL (32.0-36.0) 02/29/24 05:44 RDW Std Deviation 40.9 fL (36.4-46.3) 02/29/24 05:44 RDW Coeff of Renu 12.5 % (11.5-14.5) 02/29/24 05:44 Plt Count 277 K/uL (130-400) 02/29/24 05:44 MPV 9.7 fL (9.4-12.4) 02/29/24 05:44 Immature Gran % (Auto) 0.6 % 02/29/24 05:44 Neut % (Auto) 77.3 % 02/29/24 05:44 Lymph % (Auto) 10.7 % 02/29/24 05:44 Monona % (Auto) 10.6 % 02/29/24 05:44 Eos % (Auto) 0.6 % 02/29/24 05:44 Baso % (Auto) 0.2 % 02/29/24 05:44 Neut # (Auto) 8.23 K/uL (1.40-6.50) H 02/29/24 05:44 Lymph # (Auto) 1.14 K/uL (1.20-3.40) L 02/29/24 05:44 Monona # (Auto) 1.13 K/uL (0.11-0.59) H 02/29/24 05:44 Eos # (Auto) 0.06 K/uL (0.00-0.50) 02/29/24 05:44 Baso # (Auto) 0.02 K/uL (0.00-0.20) 02/29/24 05:44 Immature Gran # (Auto) 0.06 K/uL (0.01-0.20) 02/29/24 05:44 Sodium 135 mmol/L (136-145) L 02/29/24 05:44 Potassium 4.3 mmol/L (3.5-5.1) 02/29/24 05:44 Chloride 103 mmol/L (98-107) 02/29/24 05:44 Carbon Dioxide 27 mmol/L (21-32) 02/29/24 05:44 Anion Gap 5 (3-11) 02/29/24 05:44 BUN 18 mg/dl (6-23) 02/29/24 05:44 Creatinine 0.78 mg/dl (0.6-1.2) 02/29/24 05:44 Est Cr Clr Drug Dosing 45.8 ml/min 02/29/24 05:44 eGFR 76.73 02/29/24 05:44 BUN/Creatinine Ratio 23.1 (10-20) H 02/29/24 05:44 Glucose 101 mg/dl (70-99(Fasting)) H 02/29/24 05:44 Calcium 8.3 mg/dl (8.6-10.3) L 02/29/24 05:44 Impressions Pelvis X-Ray 02/28/24 09:29 SINGLE VIEW PELVIS CLINICAL HISTORY: Postoperative examination. FINDINGS: An AP portable view of the pelvis is compared to study dated 02/19/2024. A bipolar right hip arthroplasty is in near-anatomic alignment. At least 2 cortical lag screws transfix the acetabular cup. No acute fracture is identified. There are expected postoperative changes overlying the right hip including subcutaneous gas and soft tissue edema. A left hip arthroplasty is unchanged from previous. Sclerotic change is noted in the sacroiliac joints. Lumbosacral spondylosis is partially imaged. Large enthesophytes arise from the anterior superior iliac spines. A bone island in the sacrum is unchanged. IMPRESSION: Expected postoperative findings status post right hip arthroplasty. No acute fracture is seen. ACT 112: Negative or not required by law. Electronically signed by: Bo Orta M.D. 02/28/2024 11:18 AM
--- NOTE | 2024-02-29 09:11 | Discharge Summary ---
Date of Service February 29, 2024 Admission HPI Per Admitting Provider History of Present Illness This 78-year-old female presents to clinic today for evaluation of right hip pain that has been ongoing since May. Patient states that the onset of the pain was insidious with no known injury. She states that it feels very similar to the pain that she had in her left hip before she had it replaced 3 years ago. Patient states that the surgeon replaced her left hip has retired. She states that she is also been evaluated by Dr. So at [facility] in [place] but he does not do hip surgery. Patient states that recently she had begun using a cane as an assistive device. Patient localizes most of her pain in the groin area and states that occasionally it radiates to the lateral hip and down her leg to her ankle. She states she is unable to sit for a long period of time due to a constant aching sensation. She states she can stand for longer period that she can sit. Patient states that a few weeks ago she did fall in her garden but did not injure the hip. Her issue at that time was she had difficulty getting up because of her right hip bothering her so much. She states that before the pain developed she was very active going to the gym 3-4 times a week and walking her dog for 3 miles each day. Patient states that she uses meloxicam on a daily basis and recently completed a Medrol Dosepak without relief of her symptoms. Patient states to sleep at night she has to lie on her left side with a pillow between her knees and ice on her right hip. She feels that her range of motion is very limited and she has difficulty performing activities of daily life like putting on her pants when getting out of or into her car. Due to her failure of conservative treatment and x-ray findings surgical intervention was recommended. She is scheduled for right total hip arthroplasty with Dr. Meredith on February 28, 2024. Admission Exam Per Admitting Provider General: Well-dressed, well-nourished. Normal mood and affect. Alert and oriented x3. HEENT: Head: Atraumatic, normocephalic. Eyes: Extraocular movements intact, pupils equal round and reactive to light, sclera normal. Ears: Ears grossly normal, TMs are clear normal light reflex. Nose: Nares are patent bilaterally. Throat: Oropharynx clear mucous membranes moist good dentition uvula midline. Neck: Supple, no lymphadenopathy, nontender palpation, full range of motion. Cardiac: Regular rate and rhythm, normal S1, S2. No murmurs, rubs or gallops appreciated. Lungs: Clear to auscultation bilaterally. No adventitious sounds. No accessory muscle use. Abdomen: Soft, nontender, nondistended, normal bowel sounds heard in all 4 quadrants. Extremities: Focusing on the patient's RIGHT lower extremity: Sensation intact to light touch L3 to S1 dermatomes Palpable DP and PT pulses Right leg approx. 8 mm shorter ROM: Flexion limited to 60/ Abduction limited to 15/ External rotation limite d to 25/ Internal rotation 5 No skin lesions + Log roll + Stinchfield test - Tenderness over trochanteric bursa Principal Diagnosis Right hip avascular necrosis Discharge Exam Right hip: Outer dressing was removed. Silverlon is clean dry and intact and left in place. Patient is able to perform an active straight leg raise test. She is able to actively dorsi and plantarflex her foot. Her quad strength is 3+ out of 5. She tolerates light passive hip flexion near 90 degrees and only has a slight pulling sensation with a passive internal and external hip rotation. She is neurovascularly intact in the right lower extremity. Her peripheral pulses are 2+. Discharge Data Allergies Allergy/AdvReac Type Severity Reaction Status Date / Time No Known Allergies Allergy Verified 02/28/24 05:24 Procedures Performed Operation Date: 02/28/24 07:00 Actual Procedures p Right Total Hip Arthroplasty, Cemented(Right) - Haim Meredith MD Hospital Course (1) S/P total hip arthroplasty: Patient had an uneventful overnight stay following right total hip arthroplasty. She is doing very well this morning. She is hoping to be discharged home later this morning and to begin in-home physical therapy later this weekend. Patient is very pleased with the results of her surgery. Total hip precautions reviewed PT/OT Weightbearing as tolerated with walker assistance Ice with easy wrap Keep Silverlon dressing in place Pain controlled p.o. medication DVT prophylaxis with aspirin and TEGAN stockings Abduction pillow use x 6 weeks Plan is to discharge home today with in-home physical therapy for the first 2 weeks Follow-up with [facility] orthopedics as previously scheduled With questions contact our clinic at [phone] Total Time Total Time Spent Total Time Spent (In Minutes): 20 minutes Discharge Plan Discharge Items Patient Disposition: Home - Home Health Services Reason For Visit: POST SURGICAL CARE Discharge Diagnosis: s/p Right total hip arthroplasty Activity: As commented below Lifting: None Bathing: Keep incision dry Bathing Comment: May shower tomorrow Sexual Activity: Wait until after follow-up appointment Exercise/Sports: Wait until after follow-up appointment Driving/Machine Use: No driving until cleared by retail specialist Weightbearing: Right weightbearing Weightbearing Comment: As tolerated with walker assistance Non-emergency contact: Surgeon Call non-emergency contact if: you have any medication questions, your pain is not controlled, your temperature is above 101.5, your wound has increased drainage and your wound pain has increased Follow-up/Referrals: PCP,NO [Physician] - Diet: Regular Addtl Attending Provider Instructions: Post-operative Instructions Dear Patient and Family/Friends, Before you are discharged from the hospital, it is important to know what to expect when you get home after surgery. To that end, we have created this sheet of discharge instructions which covers many commonly asked questions. Make sure you go through this sheet in its entirety with your nurse before you are discharged. Please note that we will go over the specifics of your surgery and recovery when you return for your first post-operative visit. Sincerely, Dr. Meredith Medications 1. Oxycodone 5 mg: Take 1-2 tabs every 4-6 hours as needed for postoperative pain control. A prescription for this medication will be sent to your pharmacy. 2. Diclofenac sodium 75 mg: Take 1 tab twice daily for the first 30 days postoperatively for pain and inflammation relief. A prescription will be sent to your pharmacy with 1 refill. Do not use your meloxicam while taking this medication. 3. Aspirin 81 mg: Take 1 tab twice daily for the first 30 days postoperatively for blood clot prevention. Please purchase this medication. 4. Extra strength Tylenol 500 mg: Take 2 tabs every 6-8 hours as needed for additional supplemental pain control. Please purchase the medication. Pain Expect to be in a fair amount of pain after surgery. Remember, our goal is not to eliminate your pain, but to make it tolerable. It is a good idea to stay ahe ad of your pain by taking the medications you were prescribed once you get home. Typically, the pain starts improving 3-7 days after surgery. You should start weaning off the narcotic pain medication (oxycodone, hydrocodone, hydromorphone, morphine) as soon as your pain improves. Please call our office if your pain is not adequately controlled. Ice Ice your operative site at least 5 times a day for 15-30 minutes at a time. Make sure you have a thin cloth between the ice or cooling unit and your skin to prevent rizvi bite. This is especially important if you received a nerve block. Continue icing your operative site for the first 5-7 days after surgery, then as needed. Diet/Nausea/Vomiting Start by drinking clear liquids and eating crackers. If you can tolerate this, then you may resume your normal diet. If you feel nauseated or vomit, take Zofran/ondansetron (if prescribed). Please call our office if you have intractable nausea or vomiting, or, if after hours, you may go to the Emergency Room for help. Constipation Constipation is a common side effect of narcotic pain medication. If you have not had a bowel movement within 2 days after surgery, we recommend purchasing an over the counter laxative such as Milk of Magnesia, Dulcolax, or Miralax from a local pharmacy, and taking it as instructed. Call our clinic if any questions. Nerve block The anesthesia team sometimes places a nerve block to help with post-operative pain control. This results in significant numbness and inability to move the extremity. The nerve block usually wears off in 8-12 hours, but sometimes can last up to 24 hours. Please call our office if you are still unable to move your extremity after 24 hours, unless you received a pain pump to take home. Nerve blocks typically wear off quickly, so start taking pain medication as soon as you start feeling soreness near your surgical site. Weight bearing and Range of Motion. Do not bear any weight through your operative extremity immediately after surgery. If you had upper extremity surgery, do not lift anything with that arm. If you are in a knee brace, keep it locked in place until your follow-up. We will discuss your weight bearing, range of motion, and lifting restrictions in detail at your first post-operative appointment. Continuous Passive Motion (CPM) Machine If you were prescribed a CPM machine, it will start after your first post- operative appointment, at which time we will give you instructions on the range of motion settings and duration of treatment Physical therapy You will be given a prescription for physical therapy or occupational therapy at your first post-operative appointment. Typically, patients start therapy within 1 week of surgery Wound care and showering We will inspect your wound at your first post-operative visit, and may do a dressing change at that time. Most patients will be in a water-proof dressing that is removed 14 days after surgery. It is normal to see some dried blood on the dressing. Do not remove your dressing, paper strips or sutures yourself unless you are given permission. Showering is allowed the day after surgery. Do not scrub or remove any dressings. The wound should not be submerged underwater (i.e. in a bathtub or pool) until 4 weeks after surgery TEGAN stockings If you were given white stockings, these are to be worn at all times except to shower (on both legs) for the first 2 weeks after surgery. Driving You may not drive while taking narcotic pain medication or while in a cast, splint, sling or brace. You, the patient, need to make the final determination about when you are safe to drive, however, the earliest you may consider driving after surgery is below: Hand/Wrist/Elbow Surgery: 3 days Shoulder Surgery: 2 weeks Hip,/Knee/Ankle Surgery: 4 weeks Fracture repair: 6 weeks Return to Work Your return to work depends on what surgery was done and what type of work you do. Please bring any paperwork your employer needs completed to your first post-operative visit. Also, bring a description of your job duties, as this helps us to understand what risks you may face at work. Travel Avoid long distance travel (greater than 1 hour) in airplanes and cars for the first 6 weeks after surgery. If you must travel, you need to have a Doppler ultrasound done before you travel to rule out a blood clot in your legs. Follow-up You should have a follow-up appointment already scheduled 1-2 days after surgery. If not, please contact our office to make this appointment before you leave the hospital. When to call the office It is normal to have swelling and bruising in the limb that was operated on. This will improve with time. It is also normal to have fevers for the first 2 days after surgery. Reasons you should call your doctor include: Uncontrolled pain; Nausea, vomiting, or constipation that does not improve with medication; Fevers over 101.5, chills, sweats; Drainage or bleeding from the wound; Foul odor; Spreading areas of redness; Any other concerns. Contact Information Please call Dr. Meredith's office at [phone] with any concerns. Pending Studies at Discharge: No Stand-Alone Forms: My [facility] Medications and DC Order Prescriptions: New aspirin 81 mg Tablet,Delayed Release (Dr/Ec) 81 mg PO BID 30 Days Qty: 60 0RF acetaminophen [Tylenol Extra Strength] 500 mg Tablet 1,000 mg PO Q8 30 Days Qty: 180 0RF oxycodone 5 mg Tablet 5 - 10 mg PO Q4H MDD Max 6/day. Ongoing treatment PRN (Reason: Postoperative pain control) Qty: 28 0RF diclofenac sodium 75 mg tablet,delayed release (DR/EC) 75 mg PO BID 30 Days Qty: 60 1RF Continued multivitamin Tablet 1 tab PO DAILY calcium 600 mg Capsule 1,200 mg PO DAILY simvastatin 10 mg Tablet 10 mg PO HS amlodipine 5 mg Tablet 5 mg PO HS losartan 25 mg Tablet 12.5 mg PO QAM ibandronate 150 mg Tablet 150 mg PO MONTHLY Patient Comments: last sunday of the month omega [id number] oil [Fish Oil] 1,000 mg (120 mg-180 mg) Capsule 1 cap PO DAILY Discontinued meloxicam 15 mg Tablet 15 mg PO DAILY Discharge Orders: Discharge Order (Routine); Ordered 02/29/24 Ordered By: Alon Mendoza Admission Data Admit Date/Time: 02/28/24 09:30 Attending Provider: Haim Meredith Admit Provider: Haim Meredith Primary Care Provider: Payam Caba Other Providers: [facility],Home Healthcare
[2024-02-29] MEDS: INFLUENZA VACC TS2024-25(65y+)/PF (IIV3) 0.5mL Syr IM ONE (10:11)
[2024-02-29 10:36] VITALS: BP 160/80; PULSE 80; RESP 16; O2SAT 96
== END 2024-02-29 11:09 | disposition home health service (06) | DRG 470 ==
LOC: ASU 05:14 → INTOOBSV 09:30 → PACUINP 09:30 → 3E 12:38